=== PATIENT | male | born 1995 | race African-American/Black ===

== ENCOUNTER 2017-08-17 13:50 | Emergency (ER) | payer MEDICAID ==
[~2017-08-17] VITALS: Ht 175.3 cm; Wt 104.5 kg
[2017-08-17 13:53] VITALS: BP 133/62; PULSE 92; RESP 18; TEMP 99.1; O2SAT 99
--- NOTE | 2017-08-17 14:34 | RADRPT ---
EXAM DATE/TIME: 08/17/2017 14:11 [place] COMPARISON: No previous studies available for comparison. INDICATIONS : Right ankle pain and swelling after rolling injury. MEDICAL HISTORY : None. SURGICAL HISTORY : None. ENCOUNTER: Initial ACUITY: 1 day PAIN SCORE: 3/10 LOCATION: Right lateral ankle FINDINGS: Three view exam was performed of the right ankle. The bony structures are in normal alignment. No e vidence of fracture, dislocation. Soft tissue swelling is seen, lateral more so than medial. The ank le mortise is intact. No radiopaque foreign bodies are seen. Bony mineralization is normal. CONCLUSION: Soft tissue swelling, likely indicative of sprain. No fracture or subluxation demonstrated. Fabian Horowitz MD on August 17, 2017 at 14:31 Board Certified Radiologist. This report was verified electronically.
--- NOTE | 2017-08-17 14:41 | PD ---
Physical Exam Date Seen by Provider: Aug 17, 2017 Time Seen by Provider: 14:10 Narrative 22 year old male presents to the emergency department for evaluation of right ankle injury while playing basketball just prior to arrival. He states he dislocated it and his friend reduced it. Current pain is 2/10. Mild severity. Data Data Last Documented VS Vital Signs Date Time Temp Pulse Resp B/P (MAP) Pulse Ox O2 Delivery O2 Flow Rate FiO2 08/17/17 13:53 99.1 92 18 133/62 (85) 99 Orders Orders Ankle, Complete ([id number]) (08/17/17 ) [facility] Supervised Visit with BENJAMIN: No Narrative Course 22 year old male presents to the emergency department for evaluation of right ankle injury. Patient is initially seen in triage. X-ray was ordered in triage. Patient left AMA before he could be moved to a fast track bed. Diagnosis Primary Impression: Left against medical advice Scripts No Active Prescriptions or Reported Meds Disposition: 07 AGAINST MEDICAL ADVICE Merary Benitez Aug 17, 2017 14:41
[2017-08-17] MEDS ORDERED: IBUP1TAB7 PO (15:08)
--- NOTE | 2017-08-17 15:08 | PD ---
HPI Chief Complaint: Injury Time Seen by Provider: 14:56 Travel History International Travel<30 days: No Contact w/Intl Traveler<30days: No Traveled to known affect area: No History of Present Illness HPI 22-year-old -Polish male presents emergency department with reports of ankle sprain last with "foot dislocation" that was reduced by his friend last . Patient is here as he has ongoing swelling, and pain. He has not been seen by medical professional prior to this visit. Patient is a local student and is using crutches when he arrives. Patient denies weakness or numbness. Pain is currently 6 out of 10. He has no known drug allergies. Right ankle x-ray ordered in triage. [facility] Social History Alcohol Use: Yes Tobacco Use: No Substance Use: No Allergies-Medications (Allergen,Severity, Reaction): Coded Allergies: No Known Allergies (Unverified , 08/17/17) Reported Meds & Prescriptions Reported Meds & Active Scripts Active Ibuprofen 800 Mg Tab 800 Mg PO Q8H PRN Review of Systems Except as stated in HPI: all other systems reviewed are Neg General / Constitutional: No: Fever Eyes: No: Visual changes HENT: No: Headaches Cardiovascular: No: Chest Pain or Discomfort Respiratory: No: Shortness of Breath Gastrointestinal: No: Abdominal Pain Genitourinary: No: Dysuria Musculoskeletal: Positive: Arthralgias, Limited ROM, Edema (Right ankle.), Pain Skin: No Rash Neurologic: No: Weakness Psychiatric: No: Depression Endocrine: No: Polydipsia Hematologic/Lymphatic: No: Easy Bruising Physical Exam Narrative GENERAL: Patient appears in mild to moderate distress. SKIN: Warm and dry. Normal color. Normal turgor. No abrasions or open wounds. HEAD: Atraumatic. Normocephalic. EYES: Pupils equal and round. No scleral icterus. No injection or drainage. ENT: No nasal bleeding or discharge. Mucous membranes pink and moist. Pharynx is clear. Airways patent. NECK: Trachea midline. Supple and nontender. CARDIOVASCULAR: Regular rate and rhythm. RESPIRATORY: No accessory muscle use. Clear to auscultation. Breath sounds equal bilaterally. MUSCULOSKELETAL: Extremities without clubbing, cyanosis, or edema. Patient has moderate swelling to the right ankle to both medial and lateral aspects. Neurovascular exam is intact. Range of motion is intact. It is somewhat limited secondary to swelling and discomfort. NEUROLOGICAL: Awake and alert. No obvious cranial nerve deficits. Motor grossly within normal limits. Five out of 5 muscle strength in the arms and legs. Normal speech. PSYCHIATRIC: Appropriate mood and affect; insight and judgment normal. Data Data Last Documented VS Vital Signs Date Time Temp Pulse Resp B/P (MAP) Pulse Ox O2 Delivery O2 Flow Rate FiO2 08/17/17 13:53 99.1 92 18 133/62 (85) 99 Orders Orders Ankle, Complete ([id number]) (08/17/17 ) Splint Or Brace Apply/Monitor (08/17/17 15:00) Ed Discharge Order (08/17/17 15:09) MDM Medical Decision Making Medical Screen Exam Complete: Yes Emergency Medical Condition: Yes Differential Diagnosis Trip and fall and sports. Right ankle injury. Right ankle sprain. Possible fracture. Narrative Course Patient is medically stable at time of exam. Right ankle x-ray shows no fracture or obvious dislocation. Mortise is intact per radiologist. Patient is placed in a ankle stirrup splint, and is to continue crutches for the next 2 weeks. Patient is given ibuprofen 800 mg 3 times daily #60. Patient is to use ice frequently and bear weight only as tolerated. Patient can follow-up with Dr. Ibarra, orthopedic, or Dr. Bailon, clay plant treater if symptoms continue or worsen as discussed. Work for school was given with restrictions. Diagnosis Primary Impression: Moderate right ankle sprain Qualified Codes: S93.401A - Sprain of unspecified ligament of right ankle, initial encounter Referrals: Stas Bailon DPM, Todd Andrew MD Patient Instructions: Ankle Exercises (GEN), Ankle Sprain (ED), Ankle Stirrup Splint (ED), Crutch Instructions (ED), General Instructions Departure Forms: School Release Return to School Date: Aug 18, 2017 Please excuse from school until (free text option): Patient is to use ankle splint and crutches for 2 weeks. Additional Instructions: Right ankle x-ray shows no fracture or obvious dislocation. Mortise is intact per radiologist. Patient is placed in a ankle stirrup splint, and is to continue crutches for the next 2 weeks. Patient is given ibuprofen 800 mg 3 times daily #60. Patient is to use ice frequently and bear weight only as tolerated. Patient can follow-up with Dr. Ibarra, orthopedic, or Dr. Bailon, clay plant treater if symptoms continue or worsen as discussed. Work for school was given with restrictions. Med/Other Pt SpecificInfo: Prescription(s) given Scripts Ibuprofen (Ibuprofen) 800 Mg Tab 800 MG PO Q8H Y for Pain/Inflammation, #60 TAB 0 Refills Prov: Paul Nguyen MD 08/17/17 Disposition: 01 DISCHARGE HOME Condition: Stable Jase Molina Aug 17, 2017 15:08
== END 2017-08-17 15:44 | disposition home or self-care (01) ==
LOC: NEPD 13:50
DX: S93.401A Sprain of unspecified ligament of right ankle, initial encounter (principal)
CPT/HCPCS: 73610; 99283; L1906